=== PATIENT | female | born 1970 | race Caucasian/White ===

== ENCOUNTER 2016-11-08 19:26 | Inpatient (IN) ==
[2016-11-08 20:00] LABS: Basophils % 0.3 %; Eosinophils # 0.2 K/mcL (0.0-0.6); Eosinophils % 1.8 %; Hematocrit 28.2 % (35.3-44.9); Hemoglobin 8.9 g/dL (11.5-15.4); Immature Granulocytes % 0.4 % (0-4); Lymphocytes # 3.1 K/mcL (0.6-4.6); Mean Corpuscular HGB Conc 31.6 g/dL (31.6-35.5); Mean Corpuscular Volume 88.7 fL (83.0-100.0); Mean Platelet Volume 10.9 fL (9.4-12.4); Monocytes # 0.6 K/mcL (0.0-1.3); Monocytes % 6.1 %; Neutrophils # 5.2 K/mcL (1.6-8.9); Platelet Count 290 K/mcL (140-400); Red Blood Count 3.18 M/mcL (3.82-4.97); Red Cell Distribution Width 14.3 % (11.5-14.5); Segmented Neutrophils % 57.4 %
[2016-11-08 20:06] LABS: Prothrombin Time 10.5 Seconds (9.4-12.1)
[2016-11-08 20:08] LABS: Activated Partial Thrombo Time 29.8 Seconds (26.0-36.0)
[2016-11-08 20:12] LABS: Calcium 8.8 mg/dL (8.6-10.8); Potassium 4.4 mEq/L (3.5-4.5)
--- NOTE | 2016-11-08 21:16 | Emergency Department Note ---
Disposition Clinical Impression: Chronic anemia, ANDREW (acute kidney injury) Chest pain Qualifiers: Chest pain type: unspecified Qualified Code(s): R07.9 - Chest pain, unspecified Dyspnea Qualifiers: Dyspnea type: dyspnea on exertion Qualified Code(s): R06.09 - Other forms of dyspnea Disposition: Admitted As Inpatient Condition: Good Time of Disposition: 22:02 Chest Pain HPI - General Chief Complaint: ED Chest Pain Stated Complaint: Chest tightness x 2days CHRONIC Time Seen by Provider: 11/08/16 20:59 Source: patient Mode of arrival: ambulatory Limitations: no limitations Vital Signs Reviewed: Yes Nursing Notes Reviewed: Yes - History of Present Illness HPI Narrative: Patient is a 46-year-old female with past medical history of CK D, CAD, previous AR. She presents today due to 2 complaints. First complaint is she has had increased shortness of breath above baseline and centered chest pain. Chest pain started today around 3 PM. It has been intermittent, worsened with exertion, no radiation to the arms but she does admit to radiation to the back. It comes and goes, is dull ache. Some associated sweating, nausea. Denies any fevers or vomiting. Second complaint is bilateral flank pain. This has been going on for about 1-2 days. She has had decreased urine output. Also has had mild dysuria. She follows with nephrology for CKD. Severity scale (1-10): 7 - Related Data Home Medications Medication Instructions Recorded Confirmed Alprazolam [Alprazolam Xr] 1 mg PO HS 07/25/16 11/08/16 Amlodipine Besylate 10 mg PO DAILY 07/25/16 07/25/16 Chlorthalidone 50 mg PO DAILY 07/25/16 11/08/16 Citalopram Hydrobromide 40 mg PO DAILY 07/25/16 11/08/16 [Citalopram HBr] Clopidogrel [Plavix] 75 mg PO DAILY 07/25/16 11/08/16 Cyclobenzaprine [Flexeril] 10 mg PO HS 07/25/16 07/25/16 Fenofibrate 54 mg PO DAILY 07/25/16 07/25/16 Insulin Glargine,Hum.rec.anlog 300 unit SQ HS 07/25/16 07/25/16 [Toujacey Solostar] Insulin LISPRO [Humalog] 100 unit SQ TID 07/25/16 07/25/16 Isosorbide DInitrate [Isosorbide 30 mg PO DAILY 07/25/16 07/25/16 Dinitrate] Labetalol HCl 600 mg PO TID 07/25/16 07/25/16 Losartan [Cozaar] 100 mg PO DAILY 07/25/16 07/25/16 Metformin HCl [Fortamet] 1,000 mg PO BID 07/25/16 11/08/16 Metoclopramide [Reglan] 10 mg PO TID 07/25/16 07/25/16 Nitroglycerin [Nitrostat] 0.4 mg SL PRN PRN 07/25/16 07/25/16 Pregabalin [Lyrica] 100 mg PO TID 07/25/16 11/08/16 Simvastatin [Zocor] 40 mg PO HS 07/25/16 11/08/16 Topiramate [Topamax] 25 mg PO HS 07/25/16 11/08/16 hydrALAZINE [HydrALAZINE] 25 mg PO DAILY PRN 07/25/16 11/08/16 Ibuprofen [Motrin] 800 mg PO Q8HR PRN 11/08/16 11/08/16 Previous Rx's Medication Instructions Recorded Acetaminophen w/Cod 300-30 mg 1 each PO Q6HR #10 tablet 07/25/16 [Tylenol w/Codeine #3] predniSONE [PredniSONE] 10 mg PO DAILY #21 tablet 07/25/16 Allergies Allergy/AdvReac Type Severity Reaction Status Date / Time diphenhydramine Allergy Hives Verified 11/08/16 19:43 [From Benadryl] All systems ED: reviewed and negative except as stated. Constitutional: Denies: fever Cardiovascular: Reports: chest pain Respiratory: Denies: cough, dyspnea Gastrointestinal: Denies: abdominal pain, nausea, vomiting, diarrhea Genitourinary: Reports: dysuria Neurological: Denies: headache, weakness, numbness, paresthesias Chest Pain PMH - Past Medical History Medical history: Reports: arthritis, coronary artery disease, CVA, diabetes, GERD, hypertension, myocardial infarction, TIA Surgical history: Reports: orthopedic, other Psychiatric history: Reports: anxiety, bipolar, depression [employer] history: Reports: polycystic ovary syndrome - Social History Smoking Status: Never smoker Alcohol use: Reports: none Drug use: Reports: none Physical Exam - General Limitations: no limitations General appearance: alert, in no apparent distress - Head Head exam: atraumatic, normocephalic, normal inspection - Eye Eye exam: Present: normal appearance, PERRL, EOMI - ENT ENT exam: normal exam, normal oropharynx, mucous membranes moist - Neck Neck exam: Present: normal inspection, full ROM, trachea midline - Chest Chest inspection: Present: normal inspection, symmetric chest wall rise - Respiratory Respiratory exam: Present: normal lung sounds bilaterally - Cardiovascular Cardiovascular exam: Present: regular rate, normal rhythm, normal heart sounds - Abdominal Exam Abdominal exam: Present: soft, tenderness (Tenderness in bilateral flanks, mild- to-moderate; positive CVA tenderness bilaterally). Absent: distention, guarding , rebound, rigidity - Extremities Exam Extremities exam: Present: normal inspection, full ROM, pedal edema (Mild to moderate pitting edema bilateral lower extremities). Absent: tenderness - Neurological Exam Neurological exam: Present: alert, oriented X3 - Psychiatric Psychiatric exam: Present: normal affect, normal mood - Skin Skin exam: Present: warm, dry, intact, normal color Course Course Narrative: Patient was hypertensive on presentation in the 180s systolic. However, on my exam the patient systolic blood pressure was 140s. The rest of the vitals were within normal limits. Physical exam showed clear lungs, heart regular rate and rhythm, positive CVA tenderness bilaterally, positive flank tenderness on abdominal exam. EKG showed normal sinus rhythm with no acute ST changes. Labs show chronic anemia, ANDREW, elevated BNP. Troponin 0.03. Chest x-ray negative for acute cardiopulmonary process. No current chest pain. Patient did not take any aspirin. We will give the patient aspirin 325. No need currently for nitroglycerin. However, patient has significant cardiac history including a previous AR. She has not had a recent echocardiogram for a recent stress test within the past year. I discussed admission for chest pain rule out and she is agreeable with this plan. Urinalysis was also ordered to assess for any pyelonephritis/UTI that could be causing patient's bilateral flank pain. She is unable to give a urinalysis at this time, this will need to be followed up by hospitalist team. Chest X-Ray 11/08/16 19:44 IMPRESSION: No acute process. D/ / Prince Sanford MD / Prince Sanford MD Interpreting Provider: Prince Sanford MD Vital Signs Temperature 98.1 F 11/08/16 19:38 Pulse Rate 82 11/08/16 19:38 Respiratory Rate 20 11/08/16 19:38 Blood Pressure 184/72 11/08/16 19:38 O2 Sat by Pulse Oximetry 95 11/08/16 19:38 Temperature 98.0 F 11/08/16 23:41 Pulse Rate 69 11/08/16 23:41 Respiratory Rate 16 11/08/16 23:41 Blood Pressure 148/78 11/08/16 23:41 O2 Sat by Pulse Oximetry 96 11/08/16 23:41 Oxygen Delivery Oxygen Delivery Room Air Chest Pain - MDM Narrative Medical decision making narrative: No current chest pain. Patient did not take any aspirin. We will give the patient aspirin 325. No need currently for nitroglycerin. However, patient has significant cardiac history including a previous AR. She has not had a recent echocardiogram for a recent stress test within the past year. I discussed admission for chest pain rule out and she is agreeable with this plan. Urinalysis was also ordered to assess for any pyelonephritis/UTI that could be causing patient's bilateral flank pain. She is unable to give a urinalysis at this time, this will need to be followed up by hospitalist team. - Medical Records Medical records reviewed: Yes I reviewed the patient's medical records. - Lab Data Lab results reviewed: Yes I reviewed the patient's lab results. Result diagrams: 11/08/16 19:50 11/08/16 19:50 Lab Results 11/08/16 11/08/16 11/08/16 Range/Units 19:50 19:50 19:50 WBC 9.1 (4.3-11.1) K/mcL RBC 3.18 L (3.82-4.97) M/mcL Hgb 8.9 L (11.5-15.4) g/dL Hct 28.2 L (35.3-44.9) % MCV 88.7 (83.0-100.0) fL MCH 28.0 (28.0-33.3) pg MCHC 31.6 (31.6-35.5) g/dL RDW 14.3 (11.5-14.5) % Plt Count 290 (140-400) K/mcL MPV 10.9 (9.4-12.4) fL Immature Gran % 0.4 (0-4) % Seg Neutrophils % 57.4 % Lymphocytes % 34.0 % Monocytes % 6.1 % Eosinophils % 1.8 % Basophils % 0.3 % Neutrophils # 5.2 (1.6-8.9) K/mcL Lymphocytes # 3.1 (0.6-4.6) K/mcL Monocytes # 0.6 (0.0-1.3) K/mcL Eosinophils # 0.2 (0.0-0.6) K/mcL Basophils # 0.0 (0.0-0.2) K/mcL PT 10.5 (9.4-12.1) Seconds INR 1.0 APTT 29.8 (26.0-36.0) Seconds Sodium 139 (136-145) mEq/L Potassium 4.4 (3.5-4.5) mEq/L Chloride 107 (98-109) mEq/L Carbon Dioxide 19 (19-29) mEq/L BUN 38 H (7-20) mg/dL Creatinine 1.68 H (0.57-1.11) mg/dL Est GFR ( Amer) 40 L (> 60) Est GFR (Non-Af Amer) 33 L (> 60) BUN/Creatinine Ratio 23 (6-26) Glucose 358 H (70-99) mg/dL Calculated Osmolality 311 H (280-300) Calcium 8.8 (8.6-10.8) mg/dL Troponin I (0-0.03) ng/mL B-Natriuretic Peptide (0-100) pg/mL 11/08/16 11/08/16 Range/Units 19:50 19:50 WBC (4.3-11.1) K/mcL RBC (3.82-4.97) M/mcL Hgb (11.5-15.4) g/dL Hct (35.3-44.9) % MCV (83.0-100.0) fL MCH (28.0-33.3) pg MCHC (31.6-35.5) g/dL RDW (11.5-14.5) % Plt Count (140-400) K/mcL MPV (9.4-12.4) fL Immature Gran % (0-4) % Seg Neutrophils % % Lymphocytes % % Monocytes % % Eosinophils % % Basophils % % Neutrophils # (1.6-8.9) K/mcL Lymphocytes # (0.6-4.6) K/mcL Monocytes # (0.0-1.3) K/mcL Eosinophils # (0.0-0.6) K/mcL Basophils # (0.0-0.2) K/mcL PT (9.4-12.1) Seconds INR APTT (26.0-36.0) Seconds Sodium (136-145) mEq/L Potassium (3.5-4.5) mEq/L Chloride (98-109) mEq/L Carbon Dioxide (19-29) mEq/L BUN (7-20) mg/dL Creatinine (0.57-1.11) mg/dL Est GFR ( Amer) (> 60) Est GFR (Non-Af Amer) (> 60) BUN/Creatinine Ratio (6-26) Glucose (70-99) mg/dL Calculated Osmolality (280-300) Calcium (8.6-10.8) mg/dL Troponin I 0.03 (0-0.03) ng/mL B-Natriuretic Peptide 137 H (0-100) pg/mL - Radiology Data Radiology results reviewed: Yes I reviewed the patient's radiology results. Chest X-Ray 11/08/16 19:44 IMPRESSION: No acute process. D/ / Prince Sanford MD / Prince Sanford MD Interpreting Provider: Prince Sanford MD - EKG Data EKG attestation: Yes I reviewed and interpreted this EKG. EKG results narrative: EKG shows normal sinus rhythm. Rate 93. UT 160. QRS 100. QTC 394. Left axis deviation. No acute ST elevation or depression. Heart Score - Score History: Moderately Suspicious EKG: Normal Age: Less than 45 Risk Factors: Equal/Greater than 3 risk factor or history of atherosclerotic disease Troponin: Less than normal limit HEART Score Total: 3 S.B.A.R. - S.B.A.R. Situation: Demographics, MOA Background: Presenting Complaint, Relevant PMH, Meds, & Allergies Assessment: Vital Signs, Course and respsone to treatment, Exam Concerns, Patient/Family Expectation, Pertinant Lab Results, Outstanding Labs Recommendation: Barrier(s) to disposition, Recommendation based on pending studies, treatments, or consults S.B.A.RDave Report Given to: Dr. Barry Waterman Repor Time: 22:02 Attestation Statement - Attestation Attestation: I, Farhat Courtney DO, examined this patient [id number] and my medical decision-making was reviewed with Dr. Marcell Mendiola, Resident Physician. I agree with the documented findings, disposition and treatment plan as described except to the extent set forth below. Please see my progress notes for details. 46-year-old female presents emergency room with shortness of breath increased weight gain and fluid swelling of the lower extremities and chest discomfort. She has chronic chest discomfort issues appears to be similar this time but she was having more exertional dyspnea than previously. Physical exam does show clear lungs with the training that salt does have mild pitting edema in the bilateral lower extremities but otherwise has no other acute issues noted at this time. EKG labs including troponin were all negative at this time. BNP is slightly elevated. Rest of her laboratory workup appears to be at her baseline at this point. Chest x-ray is otherwise stable. Detailed review the presentation symptoms and history were discussed with the patient and family. Recommendation for admission was determined after patient describes more as he exertional dyspnea and orthopnea. Hospitalist was contacted in addition process completed. See detailed documentation of the conversations evaluation medical intervention completed here in the emergency room by the resident physician. No other concerns or issues noted. Treatment completed here in the ED.
[2016-11-08] MEDS ORDERED: Aspirin 325 MG TABLET PO ONE (21:56)
[2016-11-08] MEDS ORDERED: Ondansetron 4 MG/2 ML VIAL IVP ONE (22:20)
[2016-11-09] MEDS ORDERED: Naloxone 0.4 MG/ML INJ IVP PRN (00:25)
[2016-11-09] MEDS ORDERED: Ondansetron 4 MG/2 ML VIAL IVP PRN (00:25)
[2016-11-09] MEDS ORDERED: hydrALAZINE 25 MG TABLET PO PRN (00:34)
[2016-11-09] MEDS ORDERED: Nitroglycerin 0.4 MG TAB.SUBL SL PRN (00:34)
[2016-11-09] MEDS ORDERED: Dextrose Gel 15 GM PO PRN ×2 (00:56)
[2016-11-09] MEDS ORDERED: *HR* Dextrose 50 % in Water (Syg) 50 ML SYRINGE IVP PRN (00:56)
[2016-11-09] MEDS ORDERED: D5% in Water 1,000 ML IVC PRN (00:56)
[2016-11-09] MEDS: Acetaminophen 325 MG TABLET PO PRN ×2 (01:08→10:00)
[2016-11-09 01:30] LABS: Calcium 8.6 mg/dL (8.6-10.8); Potassium 4.5 mEq/L (3.5-4.5)
[2016-11-09] MEDS: Insulin DETEMIR 100 UNIT/ML X5UNITS SQ SCH ×2 (01:48→21:20)
[2016-11-09 02:03] LABS: Basophils % 0.5 %; Eosinophils # 0.2 K/mcL (0.0-0.6); Eosinophils % 2.1 %; Hematocrit 25.8 % (35.3-44.9); Immature Granulocytes % 0.5 % (0-4); Lymphocytes # 3.2 K/mcL (0.6-4.6); Lymphocytes % 35.7 %; Mean Corpuscular Hemoglobin 27.4 pg (28.0-33.3); Mean Corpuscular Volume 88.4 fL (83.0-100.0); Mean Platelet Volume 10.7 fL (9.4-12.4); Monocytes # 0.6 K/mcL (0.0-1.3); Monocytes % 6.9 %; Neutrophils # 4.8 K/mcL (1.6-8.9); Platelet Count 260 K/mcL (140-400); Red Blood Count 2.92 M/mcL (3.82-4.97); Red Cell Distribution Width 14.5 % (11.5-14.5); Segmented Neutrophils % 54.3 %
[2016-11-09 03:54] LABS: Bilirubin,Urine Negative (Negative); Blood,Urine Negative (Negative); Clarity,Urine Clear (Clear); Color,Urine Yellow (Yellow); Glucose,Urine (UA) 250 mg/dL (Normal); Ketones,Urine Negative (Negative); Leukocyte Esterase,Urine Negative (Negative); Nitrite,Urine Negative (Negative); Protein,Urine Negative (Neg-Trace); Specific Gravity,Urine 1.016 (1.010-1.025); Urobilinogen,Urine Normal (Normal)
[2016-11-09] MEDS ORDERED: Magnesium Sulfate 2 GM in D5% in Water 100 ML IVPB ONE ×2 (03:54→15:02)
--- NOTE | 2016-11-09 04:42 | Internal Med History&Physical ---
Date of Encounter: 11/09/16 Time of Encounter: 00:00 Assessment and Plan (1) Chest tightness Current visit: Yes Status: Acute Patient to report chest Tightness, with nausea, shortness of breath, palpitation , and diaphoresis. Need to rule out ACS/CAD. - Place patient on continuous cardiac monitoring. - Cycle 3 sets of troponin. - Echocardiogram. - Stress test in a.m. (2) Leg swelling Current visit: Yes Status: Acute Etiology is undetermined. Patient has a worsening renal function. Probably account for leg swelling. We will also follow echo to rule out CHF. Not place patient on Lasix because her worsening renal function. Will consult nephrology. (3) DVT prophylaxis Current visit: Yes Status: Acute Heparin subcutaneously (4) Chronic anemia Current visit: Yes Status: Acute Etiology is undetermined. Probably due to renal dysfunction. Closely follow up H&H. (5) ANDREW (acute kidney injury) Current visit: Yes Status: Acute He report decreased urine output with elevated creatinine. Will consult nephrology. Order ultrasound renal to rule out obstruction. (6) Diabetes Current visit: Yes Status: Acute We will continue basal and a sliding-scale insulin coverage. Qualifiers: Diabetes mellitus type: type 2 Diabetes mellitus complication status: with kidney complications Diabetes mellitus complication detail: with chronic kidney disease Diabetes mellitus intermediate insulin use: with intermediate use Chronic kidney disease stage: stage 3 (moderate) Qualified Code(s): E11.22 - Type 2 diabetes mellitus with diabetic chronic kidney disease; N18.3 - Chronic kidney disease, stage 3 (moderate); Z79.4 - senior living (current) use of insulin Internal Medicine - H&P: HPI Chief complaint: Chest tightness Admitted From: Home Plans for Post Hospital Care: Home History of present illness: Ms. South is a 46 year old female present to ER for chest tightness since today. Patient said that the discomfort located on left chest, no radiation, patient has shortness of breath, nausea, and diaphoresis. Patient also reported palpitation. The chest tightness is intermittent, lasts about 30-45 with second. Patient has 5 episodes of this kind of tightness today. Patient said that she tried nitroglycerin, it helps. Patient also reports leg swelling and worsening renal function for 6 months. Patient said she has decreased urine output recently. Past Med Surg Social Fam HX - Past Medical History Medical history: arthritis, coronary artery disease, CVA, diabetes, GERD, hypertension, myocardial infarction, TIA Psychiatric history: anxiety, depression - Past Surgical History Surgical History: cholecystectomy, orthopedic, other - Social History Smoking Status: Never smoker Smokeless Tobacco Status: No Alcohol use: none Drug use: none - Family History Mother Hx Family Cardiac Disorders: Yes (HYPERTENSION.) Internal Medicine - H&P: Meds Alprazolam [Alprazolam Xr] 1 mg PO HS 07/25/16 [History] Amlodipine Besylate 10 mg PO DAILY 07/25/16 [History] Chlorthalidone 50 mg PO DAILY 07/25/16 [History] Citalopram Hydrobromide [Citalopram HBr] 40 mg PO DAILY 07/25/16 [History] Clopidogrel [Plavix] 75 mg PO DAILY 07/25/16 [History] Cyclobenzaprine [Flexeril] 10 mg PO HS PRN 07/25/16 [History] Fenofibrate 162 mg PO DAILY 07/25/16 [History] Insulin Glargine,Hum.rec.anlog [Toujeo Solostar] 56 - 60 unit SQ HS 07/25/16 [ History] Insulin LISPRO [Humalog] 0 unit SQ TID 07/25/16 [History] Isosorbide DInitrate [Isosorbide Dinitrate] 30 mg PO BID 07/25/16 [History] Labetalol HCl 600 mg PO TID 07/25/16 [History] Losartan [Cozaar] 100 mg PO DAILY 07/25/16 [History] Metformin HCl [Fortamet] 1,000 mg PO BID 07/25/16 [History] Metoclopramide [Reglan] 10 mg PO ACHS 07/25/16 [History] Nitroglycerin [Nitrostat] 0.4 mg SL PRN PRN 07/25/16 [History] Pregabalin [Lyrica] 100 mg PO TID 07/25/16 [History] Simvastatin [Zocor] 40 mg PO HS 07/25/16 [History] Topiramate [Topamax] 25 mg PO HS 07/25/16 [History] hydrALAZINE [HydrALAZINE] 25 mg PO DAILY PRN 07/25/16 [History] Cyanocobalamin/FA/Pyridoxine [Folbic Tablet] 1 each PO DAILY 11/08/16 [History] Ergocalciferol (VITAMIN D2) [Vitamin D2] 50,000 unit PO QWEEK 11/08/16 [History] Ibuprofen [Motrin] 800 mg PO Q8HR PRN 11/08/16 [History] 3 Allergy/AdvReac Type Severity Reaction Status Date / Time diphenhydramine Allergy Hives Verified 11/08/16 19:43 [From Benadryl] All Systems PM: A 10-system review of systems was performed and is negative for pertinent findings except as documented above in the HPI. - Constitutional Vitals: Temp Pulse Resp BP Pulse Ox 97.7 F 67 17 172/78 98 11/09/16 03:49 11/09/16 03:49 11/09/16 03:49 11/09/16 03:49 11/09/16 03:49 General appearance: Present: A&O X 3, no acute distress, answers questions appropriately - Head Head exam: Present: atraumatic, normocephalic - Eye Eye exam: Present: PERRL, conjuntiva pink, sclera anicteric Pupils: Present: PERRL - Neck Neck exam general surgery: Present: supple, trachea midline. Absent: lymphadenopathy - Respiratory Respiratory exam: Present: CTAB. Absent: accessory muscle use, rales, rhonchi, wheezes - Cardiovascular Cardiovascular exam: Present: RRR, +S1, +S2. Absent: diastolic murmur, gallop, rubs, systolic murmur - GI/Abdominal GI/Abdominal exam: Present: normal bowel sounds, soft, no peritoneal signs. Absent: distended, tenderness - Extremities Exam Extremities exam: Present: pedal edema (Bilaterally pedal edema), warm, radial pulses palpable and symmetrical. Absent: calf tenderness, cyanotic - Neurological Exam Neurological exam: Present: CN II-XII intact, oriented X3, no focal deficits. Absent: pronater drift, facial droop, speech deficit - Skin Skin exam: Present: dry, intact Internal Med - H&P Results - Labs CBC & Chem 7: 11/09/16 01:53 11/09/16 01:07 Labs: Short CBC 11/09/16 Range/Units 01:53 WBC 8.8 (4.3-11.1) K/mcL Hgb 8.0 L (11.5-15.4) g/dL Hct 25.8 L (35.3-44.9) % Plt Count 260 (140-400) K/mcL Neutrophils # 4.8 (1.6-8.9) K/mcL BMP 11/09/16 01:07 Sodium 137 Potassium 4.5 Chloride 109 Carbon Dioxide 15 L BUN 36 H Creatinine 1.49 H Glucose 320 H Calcium 8.6 Cardiac Enzymes 11/09/16 Range/Units 01:07 Troponin I 0.03 (0-0.03) ng/mL Urine 11/09/16 Range/Units 03:46 Urine Color Yellow (Yellow) Urine Clarity Clear (Clear) Urine pH 6.0 (5.0-8.0) pH Units Ur Specific [place] 1.016 (1.010-1.025) Urine Protein Negative (Neg-Trace) mg/dL Urine Glucose (UA) 250 H (Normal) mg/dL - EKG Data -: EKG Interpreted by Myself EKG shows normal: sinus rhythm Rate: normal
[2016-11-09] MEDS: *HR* Heparin 5,000 UNIT/ML VIAL SQ SCH ×2 (06:44→17:11)
--- NOTE | 2016-11-09 08:28 | Event Note ---
Date of Encounter: 11/09/16 Time of Encounter: 08:26 Patient was seen for renal consult for increasing serum creatinine. Patient was not in the room at the time. I did review the medical record. She presented with a creatinine of 1.68. Today it is down to 1.49. Previous creatinines were 1.05 in September 2014 and 1.27 in July 2016. Medical record indicates she had been taking ibuprofen. There is also some mention of lower extremity swelling. Medical record indicates she had been taking amlodipine and Lyrica both which could contribute to lower extremity swelling. Patient will be seen and examined in full consult will follow when patient is available for evaluation.
[2016-11-09] MEDS: amLODIPine 5 MG TABLET PO SCH (10:01)
[2016-11-09] MEDS: Pregabalin 50 MG CAPSULE PO SCH ×3 (10:01→21:16)
[2016-11-09] MEDS: Fenofibrate 54 MG TABLET PO SCH (10:02)
[2016-11-09] MEDS: FOLBIC PO SCH (10:03)
[2016-11-09] MEDS: Insulin LISPRO 300 UNITS/3 ML VIAL SQ SCH ×4 (10:03→21:20)
--- NOTE | 2016-11-09 16:27 | Internal Med Progress Note ---
Date of Encounter: 11/09/16 Time of Encounter: 15:05 - Assessment and plan (1) Chest pain Current Visit: Yes Status: Acute Assessment and plan: Patient reports chest pain that began yesterday at approximately 3:00 lasting 45 seconds. She reports it as a tightness with intermittent shortness of breath. Now she states it feels like a pulled muscle. It is not reproducible to palpation, deep inspiration, or movement. Patient has a history of OR in 2013 no stents were placed at that time. Last stress test was 1 year ago at [facility] where her certified ophthalmic surgical assistant is. Last visit cardiology was 7 months ago. Echocardiogram today showed LVEF of 60%, mild LV DD and no significant valvular dysfunction. Stress test is still pending. Troponins were negative 3. Chest x-ray was negative for any acute process. Patient is already on Plavix, TriCor , losartan, Isordil, a beta yefri, losartan, as well as simvastatin. Continue these medications. Stress test in the morning Continue computer systems technology instructor labs and vitals Nitroglycerin for chest pain Qualifiers: Chest pain type: unspecified Qualified Code(s): R07.9 - Chest pain, unspecified (2) Leg swelling Current Visit: Yes Status: Acute Assessment and plan: Patient reports lower extremity edema for 4-5 days. This is accompanied by shortness of breath and chest pain. Patient with +1 nonpitting edema to bilateral ankles. Patient states it has improved. Continue chlorthalidone Continue computer systems technology instructor labs (3) Dyspnea Current Visit: Yes Status: Acute Assessment and plan: Patient reports shortness of breath associated with chest pain that lasts 45 seconds. Patient is not requiring supplemental oxygen. Her lungs are clear. She has minimal peripheral edema. Her mother states that her abdomen is distended and swollen more than it normally is. Oxygen as needed, titrate to maintain sats greater than 92% Continue telemetry Stress test pending Qualifiers: Dyspnea type: unspecified Qualified Code(s): R06.00 - Dyspnea, unspecified (4) Chronic anemia Current Visit: Yes Status: Acute Assessment and plan: Patient with history of chronic anemia, most likely due to chronic renal disease. Continue to monitor H&H. Hemoglobin is 8.0 currently. Prepared to transfuse if less than 8. (5) Diabetes Current Visit: Yes Status: Acute Assessment and plan: A1c as ordered for the morning. Continue fighting scale insulin, Accu-Cheks before meals at bedtime, diabetic diet. Qualifiers: Diabetes mellitus type: type 2 Diabetes mellitus complication status: with kidney complications Diabetes mellitus complication detail: with chronic kidney disease Diabetes mellitus terminal clerk insulin use: with penitentiary use Chronic kidney disease stage: stage 3 (moderate) Qualified Code(s): E11.22 - Type 2 diabetes mellitus with diabetic chronic kidney disease; N18.3 - Chronic kidney disease, stage 3 (moderate); Z79.4 - vermin exterminator (current) use of insulin (6) Obesity (BMI 30-39.9) Current Visit: Yes Status: Acute Assessment and plan: Chronic. Continue to encourage lifestyle modifications. (7) DVT prophylaxis Current Visit: Yes Status: Acute Assessment and plan: Heparin subcutaneous daily. (8) CKD (chronic kidney disease) stage 3, GFR 30-59 ml/min Current Visit: Yes Status: Acute Assessment and plan: Patient was stage III renal disease, sees Dr. Bishop at [facility]. Nephrology here has been consulted, he missed her today, he will return to follow-up with consultation. Retroperitoneal ultrasound has been ordered however it is not completed yet. Avoid nephrotoxins and continue to monitor labs. - Time Spent With Patient less than 15 minutes - Subjective Interval history: Patient was seen and assessed at bedside at 1505. She reports bilateral low lateral abdominal pain/side pain for 2 weeks with decreased urine output. She also reports lower extremity edema onset for 5 days ago. She began having chest pain at 3:00 yesterday with intermittent shortness of breath. She says that it lasted approximately 45 seconds and today feels like a pulled muscle in her chest. She has a prior history of OR in 2013 and her last stress was negative in approximately one year ago at [facility]. She did not have a stent placed. Her last visit with cardiology was 7 months ago. The symptoms have resolved. 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 Patient's stress test, retroperitoneal ultrasound, and nephrology consultation are all still pending. Nephrology was here to see patient, however she was not available. He will return to evaluate. - Constitutional Vitals: Temp Pulse Resp BP Pulse Ox 97.7 F 77 16 96/57 93 11/09/16 15:25 11/09/16 15:25 11/09/16 15:25 11/09/16 15:25 11/09/16 15:25 General appearance: Present: A&O X 3, morbidly obese, no acute distress, answers questions appropriately - Head Head exam: Present: atraumatic, normal inspection, normocephalic - Eye Eye exam: Present: normal appearance, conjuntiva pink, sclera anicteric - ENT ENT exam: Present: mucous membranes moist, normal exam, normal external ear exam - Neck Neck exam general surgery: Present: tenderness, supple, trachea midline. Absent : lymphadenopathy - Respiratory Respiratory exam: Present: decreased breath sounds, CTAB. Absent: accessory muscle use, rales, rhonchi, wheezes - Cardiovascular Cardiovascular exam: Present: RRR, +S1, +S2. Absent: diastolic murmur, gallop, rubs, systolic murmur - GI/Abdominal GI/Abdominal exam: Present: normal bowel sounds, soft, no peritoneal signs. Absent: distended, hepatomegaly, tenderness - Extremities Exam Extremities exam: Present: normal capillary refill, pedal edema, warm, radial pulses palpable and symmetrical. Absent: calf tenderness, cyanotic Additional comments: +1 nonpitting edema in bilateral lower extremities ankles. - Neurological Exam Neurological exam: Present: alert, oriented X3. Absent: facial droop, speech deficit - Skin Skin exam: Present: dry, intact, normal color, warm. Absent: rash Internal Medicine: Result - Labs CBC & Chem 7: 11/09/16 01:53 11/09/16 01:07 Labs: Short CBC 11/09/16 Range/Units 01:53 WBC 8.8 (4.3-11.1) K/mcL Hgb 8.0 L (11.5-15.4) g/dL Hct 25.8 L (35.3-44.9) % Plt Count 260 (140-400) K/mcL Neutrophils # 4.8 (1.6-8.9) K/mcL BMP 11/09/16 01:07 Sodium 137 Potassium 4.5 Chloride 109 Carbon Dioxide 15 L BUN 36 H Creatinine 1.49 H Glucose 320 H Calcium 8.6 Cardiac Enzymes 11/09/16 11/09/16 Range/Units 01:07 10:36 Troponin I 0.03 0.02 (0-0.03) ng/mL Urine 11/09/16 Range/Units 03:46 Urine Color Yellow (Yellow) Urine Clarity Clear (Clear) Urine pH 6.0 (5.0-8.0) pH Units Ur Specific [place] 1.016 (1.010-1.025) Urine Protein Negative (Neg-Trace) mg/dL Urine Glucose (UA) 250 H (Normal) mg/dL - ABG Interpretation ABG results: PT/INR, D-dimer PT 10.5 Seconds (9.4-12.1) 11/08/16 19:50 Consult Discharge Plan - Plan Referrals: Venessa Hobbs MD [Primary Care Provider] -
[2016-11-09] MEDS: Topiramate 25 MG TABLET PO SCH (21:17)
[2016-11-09] MEDS: ALPRAZolam 1 MG TABLET PO SCH (21:18)
[2016-11-10 04:37] LABS: Basophils % 0.3 %; Eosinophils # 0.1 K/mcL (0.0-0.6); Eosinophils % 1.3 %; Hemoglobin 7.6 g/dL (11.5-15.4); Immature Granulocytes % 0.3 % (0-4); Lymphocytes # 2.2 K/mcL (0.6-4.6); Lymphocytes % 29.3 %; Mean Corpuscular HGB Conc 31.7 g/dL (31.6-35.5); Mean Corpuscular Hemoglobin 27.9 pg (28.0-33.3); Mean Corpuscular Volume 88.2 fL (83.0-100.0); Mean Platelet Volume 11.3 fL (9.4-12.4); Monocytes # 0.6 K/mcL (0.0-1.3); Monocytes % 7.7 %; Neutrophils # 4.6 K/mcL (1.6-8.9); Platelet Count 244 K/mcL (140-400); Red Blood Count 2.72 M/mcL (3.82-4.97); Red Cell Distribution Width 14.6 % (11.5-14.5); Segmented Neutrophils % 61.1 %
[2016-11-10 04:45] LABS: Hemoglobin A1C 9.5 %
[2016-11-10 05:01] LABS: Calcium 8.3 mg/dL (8.6-10.8); Potassium 3.8 mEq/L (3.5-4.5)
[2016-11-10] MEDS: *HR* Heparin 5,000 UNIT/ML VIAL SQ SCH ×2 (05:34→17:20)
[2016-11-10] MEDS ORDERED: Regadenoson 0.4 MG/5 ML SYRINGE IVP ONE (06:22)
--- NOTE | 2016-11-10 08:32 | Event Note ---
Date of Encounter: 11/10/16 Time of Encounter: 08:31 I have been to the patient's room on 3 separate occasions and each time she has been off the floor. Therefore the full consult is still pending. We will attempt see her later today.
[2016-11-10] MEDS: Insulin LISPRO 300 UNITS/3 ML VIAL SQ SCH ×4 (09:41→20:47)
[2016-11-10] MEDS: Fenofibrate 54 MG TABLET PO SCH (09:41)
[2016-11-10] MEDS: Pregabalin 50 MG CAPSULE PO SCH ×3 (09:42→20:46)
[2016-11-10] MEDS: FOLBIC PO SCH (09:43)
[2016-11-10] MEDS: amLODIPine 5 MG TABLET PO SCH (09:43)
--- NOTE | 2016-11-10 10:15 | Nephrology Consult Note ---
Date of Encounter: 11/10/16 Time of Encounter: 09:40 Assessment and Plan (1) ANDREW (acute kidney injury) Current Visit: Yes Status: Acute ANDREW superimposed on CKD 3 in setting of DM. Baseline creat 1.2, GFR 48. Recent NSAID use, decreased oral intake and hypotension for past 24 hours contributing. Will stop Chlorthalidone and PRN Hydralazine and decrease Labatolol 600mg BID. Will obtain Renal US given prior renal stone history. Lyrica and Amlodipine contributing to LE swelling. Accurate I&O's. Avoid nephrotoxins. Will continue to monitor. History of Present Illness - Reason for Consult Acute Kidney Injury - History of Present Illness Ms. South is a 46 year old female with history of CKD stage 3, baseline creat 1.2, GFR 48, in setting of diabetes, CAD,HTN, [place]. Follows with Nephrology out of [facility]. Who presented on Nov 08 with midsternal nonradiating chest pain, shortness of breath, bilateral flank pain. She also states she had increased lower extremity swelling for past week which is now much improved. She admitted nausea, denied vomiting, admitted decreased oral intake. Admits recent wisdom tooth extraction with use of Ibuprofen for pain Initial creat 1.68 , GFR 33 today creat 1.88, GFR 29. Diabetes and hypertension since 1999, never under good control. Admits recent diagnosis of diabetic retinopathy, not requiring intervention to date. Admits proteinuria, microscopic hematuria. Admits 6-7 renal stone events not requiring intervention. Last event 13 years ago. Does not know stone composition. Admits frequent UTI's since becoming diabetic. She denies difficulty urinating, voiding 3-4 times daily during hospital stay, though documented urine output 100cc. At consult today, denies chest or flank discomfort. Denies nausea. States LE swelling uch improved, noted trace pitting. Past Med Surg Social Fam HX - Past Medical History Medical history: arthritis, coronary artery disease, CVA, diabetes, GERD, hypertension, myocardial infarction, TIA Psychiatric history: anxiety, depression - Past Surgical History Surgical History: cholecystectomy, orthopedic, other - Social History Smoking Status: Never smoker Smokeless Tobacco Status: No Alcohol use: none Drug use: none - Family History Mother Hx Family Cardiac Disorders: Yes (HYPERTENSION.) Medications and Allergies Alprazolam [Alprazolam Xr] 1 mg PO HS 07/25/16 [History] Amlodipine Besylate 10 mg PO DAILY 07/25/16 [History] Chlorthalidone 50 mg PO DAILY 07/25/16 [History] Citalopram Hydrobromide [Citalopram HBr] 40 mg PO DAILY 07/25/16 [History] Clopidogrel [Plavix] 75 mg PO DAILY 07/25/16 [History] Cyclobenzaprine [Flexeril] 10 mg PO HS PRN 07/25/16 [History] Fenofibrate 162 mg PO DAILY 07/25/16 [History] Insulin Glargine,Hum.rec.anlog [Toujeo Solostar] 56 - 60 unit SQ HS 07/25/16 [ History] Insulin LISPRO [Humalog] 10 - 15 unit SQ TID 07/25/16 [History] Isosorbide DInitrate [Isosorbide Dinitrate] 30 mg PO BID 07/25/16 [History] Labetalol HCl 600 mg PO TID 07/25/16 [History] Losartan [Cozaar] 100 mg PO DAILY 07/25/16 [History] Metformin HCl [Fortamet] 1,000 mg PO BID 07/25/16 [History] Metoclopramide [Reglan] 10 mg PO ACHS 07/25/16 [History] Nitroglycerin [Nitrostat] 0.4 mg SL PRN PRN 07/25/16 [History] Pregabalin [Lyrica] 100 mg PO TID 07/25/16 [History] Simvastatin [Zocor] 40 mg PO HS 07/25/16 [History] Topiramate [Topamax] 25 mg PO HS 07/25/16 [History] hydrALAZINE [HydrALAZINE] 25 mg PO DAILY PRN 07/25/16 [History] Cyanocobalamin/FA/Pyridoxine [Folbic Tablet] 1 each PO DAILY 11/08/16 [History] Ergocalciferol (VITAMIN D2) [Vitamin D2] 50,000 unit PO QWEEK 11/08/16 [History] Ibuprofen [Motrin] 800 mg PO Q8HR PRN 11/08/16 [History] 3 Allergy/AdvReac Type Severity Reaction Status Date / Time diphenhydramine Allergy Hives Verified 11/08/16 19:43 [From Benadryl] Review of Systems All Systems: reviewed and no additional remarkable complaints except as stated Exam - Vital Signs Vital signs: Initial Vital Signs Temp Pulse Resp BP Pulse Ox 98.1 F 82 20 184/72 95 11/08/16 19:38 11/08/16 19:38 11/08/16 19:38 11/08/16 19:38 11/08/16 19:38 Vital Signs - Last 8 Hours Temp Pulse Resp BP Pulse Ox 11/10/16 07:22 98.0 F 72 16 98/59 94 11/10/16 03:46 97.8 F 70 17 94/51 93 Intake and Output 11/09/16 11/10/16 11/10/16 23:59 07:59 15:59 Intake Total 300 / 300 Balance 300 / 300 Intake: Oral 300 / 300 Other: Meal Dinner Percent of Meal Consumed 50% Weight 121.563 kg Blood Glucose* 218 181 Patient Weight 11/10/16 23:59 Weight 121.563 kg - General Appearance General appearance: well-developed, well-nourished, appears started age, obese EENT: mucous membranes moist Neck: no JVD, no carotid bruit Respiratory: clear Cardiology: regular rate, regular rhythm Additional Comments: trace pitting Gastrointestinal: normoactive bowel sounds, no tenderness, no guarding Integumentary: warm and dry Neurologic: alert and oriented x3 Psychiatric: mood/affect appropriate, cooperative Results - Lab Results 11/10/16 03:38 11/10/16 03:38 Most recent lab results Calcium 8.3 mg/dL (8.6-10.8) L 11/10/16 03:38 Magnesium 1.3 mg/dL (1.6-2.6) L 11/09/16 16:41 Consult Discharge Plan - Plan Referrals: Venessa Hobbs MD [Primary Care Provider] -
--- NOTE | 2016-11-10 13:40 | Internal Med Progress Note ---
Date of Encounter: 11/10/16 Time of Encounter: 12:15 - Assessment and plan (1) Dyspnea Current Visit: Yes Status: Resolved Assessment and plan: Patient currently denies shortness of breath above her norm. Tolerating room air. 2 day stress test pending with second part tomorrow. Thus far, chest x- ray negative. Echocardiogram revealing ejection fraction of 60% with mild diastolic dysfunction. No pedal edema on examination. No indication of heart failure at this time. Awaiting second part of her stress test. ITS Impressions Chest X-Ray 11/08/16 19:44 IMPRESSION: No acute process. D/ / Prince Sanford MD / Prince Sanford MD Interpreting Provider: Prince Sanford MD Echocardiogram Date of Study: 11/09/2016 Indications: Chest tightness Impressions: LVEF 60%. Normal LV chamber size, wall thickness and function. Mild left ventricular diastolic dysfunction. Normal right ventricular structure and function. No significant valvular dysfunction. Mild pulmonary hypertension. (2) Chest pain Current Visit: Yes Status: Acute Assessment and plan: Patient is currently chest pain-free. Troponins negative 3. Chest x-ray negative. See prior note for dyspnea. Qualifiers: Chest pain type: unspecified Qualified Code(s): R07.9 - Chest pain, unspecified (3) Chest tightness Current Visit: Yes Status: Resolved (4) Leg swelling Current Visit: Yes Status: Resolved Assessment and plan: Patient reports lower extremity edema for 4-5 days that has since resolved. (5) Chronic anemia Current Visit: Yes Status: Chronic Assessment and plan: Patient has been anemic since 2014 however since the beginning of this month, patient's hemoglobin has been lower than usual and is trending down. Current hemoglobin 7.6. Unclear causation. Patient denies hematochezia, melena, hemoptysis. We will obtain guaiac, iron, B12 and folate and monitor. Patient stating she has never had to have a blood transfusion in the past. No signs of active bleeding and likely due to her CKD, but will investigate. (6) ANDREW (acute kidney injury) Current Visit: Yes Status: Acute Assessment and plan: Patient with acute kidney injury superimposed on chronic kidney disease stage III. Nephrology is on board and is following. Retroperitoneal ultrasound unremarkable for acute processes. Urinalysis unremarkable. Patient is hypotensive at this time. Holding her losartan. Hold NSAIDs. Encourage by mouth intake. Nephrology has stopped her chlorthalidone as well as her as needed hydralazine. They have also decreased her labetalol dosage. Her lower extremity has swelling has resolved at this time-if reoccurs, we will consider adjusting Lyrica and amlodipine as these can contribute. ITS Impressions Retroperitoneum Ultrasound 11/10/16 11:00 IMPRESSION: No hydronephrosis noted Punctate echogenic foci in the right kidney, either tiny islands of fat or nonobstructing renal calculi. D/ / Prince Crum MD / Prince Crum MD Interpreting Provider: Prince Crum MD (7) CKD (chronic kidney disease) stage 3, GFR 30-59 ml/min Current Visit: Yes Status: Chronic Assessment and plan: Patient was stage III renal disease, sees Dr. Bishop at [facility]. See prior note for acute kidney injury (8) Diabetes Current Visit: Yes Status: Chronic Assessment and plan: Uncontrolled at home with an A1c of 9.5%. Continue sliding scale while admitted. (9) Obesity (BMI 30-39.9) Current Visit: Yes Status: Acute Assessment and plan: Chronic. Continue to encourage lifestyle modifications. (10) DVT prophylaxis Current Visit: Yes Status: Acute Assessment and plan: Heparin subcutaneous daily. - Subjective Interval history: Patient seen and examined. On examination, patient sleep supine in bed. She awakened easily to voice and denied pain or shortness of breath. She stated she was tired and would like to rest. - Constitutional Vitals: Temp Pulse Resp BP Pulse Ox 97.8 F 79 16 95/52 94 11/10/16 11:43 11/10/16 11:43 11/10/16 11:43 11/10/16 11:43 11/10/16 11:43 General appearance: Present: A&O X 3, pleasant, no acute distress, obese, answers questions appropriately - Head Head exam: Present: atraumatic, normocephalic - Eye Eye exam: Present: PERRL, conjuntiva pink, sclera anicteric Pupils: Present: PERRL - Neck Neck exam general surgery: Present: supple, trachea midline. Absent: lymphadenopathy - Respiratory Respiratory exam: Present: CTAB. Absent: accessory muscle use, rales, respiratory distress, rhonchi, wheezes - Cardiovascular Cardiovascular exam: Present: RRR, +S1, +S2. Absent: diastolic murmur, gallop, rubs, systolic murmur - GI/Abdominal GI/Abdominal exam: Present: normal bowel sounds, soft, no peritoneal signs. Absent: distended, tenderness - Extremities Exam Extremities exam: Present: warm, radial pulses palpable and symmetrical. Absent : calf tenderness, cyanotic, pedal edema - Neurological Exam Neurological exam: Present: alert, CN II-XII intact, oriented X3, no focal deficits, strengths equal and symetr throughout. Absent: pronater drift, facial droop, speech deficit - Skin Skin exam: Present: dry, intact, pallor, warm Internal Medicine: Result - Labs CBC & Chem 7: 11/10/16 03:38 11/10/16 03:38 Labs: Short CBC 11/10/16 Range/Units 03:38 WBC 7.5 (4.3-11.1) K/mcL Hgb 7.6 L (11.5-15.4) g/dL Hct 24.0 L (35.3-44.9) % Plt Count 244 (140-400) K/mcL Neutrophils # 4.6 (1.6-8.9) K/mcL BMP 11/10/16 03:38 Sodium 139 Potassium 3.8 Chloride 109 Carbon Dioxide 19 BUN 40 H Creatinine 1.88 H Glucose 158 H Calcium 8.3 L - ABG Interpretation ABG results: PT/INR, D-dimer PT 10.5 Seconds (9.4-12.1) 11/08/16 19:50 - Impressions Impressions Retroperitoneum Ultrasound 11/10/16 11:00 IMPRESSION: No hydronephrosis noted Punctate echogenic foci in the right kidney, either tiny islands of fat or nonobstructing renal calculi. D/ / Prince Crum MD / Prince Crum MD Interpreting Provider: Prince Curm MD Consult Discharge Plan - Plan Referrals: Venessa Hobbs MD [Primary Care Provider] -
[2016-11-10] MEDS: Topiramate 25 MG TABLET PO SCH (20:46)
[2016-11-10] MEDS: Insulin DETEMIR 100 UNIT/ML X5UNITS SQ SCH (20:46)
[2016-11-10] MEDS: ALPRAZolam 1 MG TABLET PO SCH (20:46)
[2016-11-11 05:28] LABS: Basophils % 0.5 %; Eosinophils # 0.1 K/mcL (0.0-0.6); Eosinophils % 1.7 %; Hematocrit 24.5 % (35.3-44.9); Hemoglobin 7.8 g/dL (11.5-15.4); Immature Granulocytes % 0.5 % (0-4); Lymphocytes # 2.1 K/mcL (0.6-4.6); Lymphocytes % 32.9 %; Mean Corpuscular HGB Conc 31.8 g/dL (31.6-35.5); Mean Corpuscular Hemoglobin 27.7 pg (28.0-33.3); Mean Corpuscular Volume 86.9 fL (83.0-100.0); Monocytes # 0.6 K/mcL (0.0-1.3); Monocytes % 8.8 %; Neutrophils # 3.6 K/mcL (1.6-8.9); Platelet Count 244 K/mcL (140-400); Red Blood Count 2.82 M/mcL (3.82-4.97); Red Cell Distribution Width 14.6 % (11.5-14.5); Segmented Neutrophils % 55.6 %
[2016-11-11] MEDS: *HR* Heparin 5,000 UNIT/ML VIAL SQ SCH (05:36)
[2016-11-11 05:44] LABS: Calcium 8.3 mg/dL (8.6-10.8); Potassium 3.9 mEq/L (3.5-4.5)
[2016-11-11 06:18] LABS: Folate 16.3 ng/mL (7.0-31.4)
[2016-11-11 06:19] LABS: Vitamin B12 > 2000 pg/mL (213-816)
[2016-11-11 06:59] LABS: Thyroid Stimulating Hormone 1.795 mcIU/mL (0.350-4.840)
--- NOTE | 2016-11-11 08:08 | Event Note ---
Date of Encounter: 11/11/16 Time of Encounter: 08:07 Patient is not in her room. Serum creatinine is slightly better. Blood pressure remains on the low side. Going to discontinue her amlodipine. Hopefully her renal function will continue to improve. I do not believe that her anemia is related to her chronic kidney disease since her baseline renal function shows only mild renal impairment.
[2016-11-11] MEDS ORDERED: Ferumoxytol 510 MG in 0.9 % Sodium Chloride 100 ML IVPB ONE (08:56)
[2016-11-11] MEDS: Insulin LISPRO 300 UNITS/3 ML VIAL SQ SCH ×3 (09:22→17:07)
[2016-11-11] MEDS: FOLBIC PO SCH (09:25)
[2016-11-11] MEDS: Fenofibrate 54 MG TABLET PO SCH (09:33)
[2016-11-11] MEDS: Pregabalin 50 MG CAPSULE PO SCH ×2 (09:35→17:08)
--- NOTE | 2016-11-11 10:20 | Nuclear Medicine Stress Report ---
Regadenoson Nuclear 2 day Name: Sugey South Date of Study: 11/10/2016 Date: 1970 Ht: 70.0 in Medical Record#: [id number] Age: 46 Wt: 269.0 lb Gender: Female Order #: [id number] Location: [facility] Room: [facility] Supervising Provider: Kalpana Hamm CNP Reading Physician: Heriberto Potts DO, FAC, [facility] Ordering Physician: Maritza Mills CNP Primary Care Physician: Venessa Hobbs MD Stress Technologist: Keya Soto, PRODUCE RUNNER, CPFT Road Supervisor Of Engines: Alirio Alexandre Indications: Chest Pain, Coronary Artery Disease Impression: Pharmacologic stress ECG is negative for ischemia at level of heart rate achieved. Gated EF = 70%. Small sized, mild intensity, fixed apical lateral defect consistent with artifact. Perfusion imaging was negative for ischemia or infarct. History: Hypertension Diabetes Hypercholesteremia Stress Test Summary: Stress Test Type: Pharmacologic Regadenoson 0.4mg/5ml given IV Baseline Information: Initial Heart Rate: 66 Blood Pressure: 100/46 Stress Information: Test Terminated Due to (primary): As per protocol Maximum Blood Pressure: 92/58 Maximum Heart Rate: 90 Percent Maximum Heart Rate Achieved: 51 Double Product: 8280 METS Reached: 1 Symptoms: Chest pain Nuclear Summary: SPECT myocardial perfusion imaging using Tc99m Sestamibi given intravenously was performed at rest and following cardiac stress testing. The resting images were obtained following initial dose of 32.3 mCi. Following stress an additional dose of 35.2 mCi was given at peak exercise or 30 seconds post regadenoson infusion. Medication Given: Time Medication Dose Units Route Findings: Stress Note * Resting ECG demonstrated normal sinus rhythm. * No baseline arrhythmias were noted. * Pharmacologic stress ECG is negative for ischemia at level of heart rate achieved. * No arrhythmias were noted during stress. * Patient had no chest pain during stress. Hemodynamic responses * Normal hemodynamic responses to pharmacologic stress. Study Quality * Study quality is average. Gated EF % * Gated EF = 70%. Left Ventricle * The left ventricle is dilated. * LVEDV = 150 mL. Apical Perfusion Rest * The apical lateral segment shows a mild reduction in perfusion. Apical Perfusion Stress * The apical lateral segment shows a mild reduction in perfusion. TID * No evidence of transient ischemic dilatation. TID ratio * TID ratio = 1.14. Lung Uptake * There is no evidence of increase lung uptake. Updated by Heriberto Potts DO, JUSTINO, CLEMENTE, RUDDY on 11/11/2016 10:14:55 AM electronically signed on 11/11/2016 10:15:39 AM with status of Final
--- NOTE | 2016-11-11 12:23 | Electrocardiograph Report ---
[address] [address] Test Date: 2016-11-08 Pat Name: Sugey South Department: 105 Room: 3B44 Gender: F Precision Dancer: : 1970 Requested By: Oni Shetty Order Number: [id number] Reading MD: Doretha Mena Measurements Intervals [place] Rate: 93 P: 57 VA: 160 QRS: -7 QRSD: 100 T: 29 QT: 343 QTc: 394 Interpretive Statements SINUS RHYTHM WITH SINUS ARRHYTHMIA LOW QRS VOLTAGE IN PRECORDIAL LEADS INCOMPLETE RIGHT BUNDLE BRANCH BLOCK Electronically Signed On 11-11-2016 12:21:41 EDT by Doretha Mena
[2016-11-11 14:55] VITALS: BP 114/57
--- NOTE | 2016-11-11 17:59 | Discharge Summary ---
Date of Encounter: 11/11/16 Time of Encounter: 17:00 - Discharge Diagnosis (1) Dyspnea Priority: Primary Status: Resolved (2) Chest pain Priority: Primary Status: Resolved Qualifiers: Chest pain type: unspecified Qualified Code(s): R07.9 - Chest pain, unspecified (3) Chest tightness Priority: Primary Status: Resolved (4) Leg swelling Priority: Primary Status: Resolved (5) Chronic anemia Priority: Secondary Status: Chronic Comments: Patient has been anemic since 2014 however since the beginning of this month, patient's hemoglobin has been lower than usual and was trending down but remained stable on the final 3 days of her 4 day admission. Current hemoglobin 7.8. Unclear causation. Patient denies hematochezia, melena, hemoptysis. Guaiac negative, iron low and she was given one dose of feraheme and started on PO supplementation. B12 levels high and folate normal. Will have her repeat CBC within one week of discharge and have her followup closely outpatient with [facility]. (6) ANDREW (acute kidney injury) Priority: Primary Status: Resolved Comments: returned to her baseline prior to discharge. CLose outpatient followup with her buyer assistant. (7) CKD (chronic kidney disease) stage 3, GFR 30-59 ml/min Priority: Secondary Status: Chronic (8) Diabetes Priority: Secondary Status: Chronic Comments: Uncontrolled at home with an A1c of 9.5%. Recommend continued follow-up outpatient (9) Obesity (BMI 30-39.9) Priority: Secondary Status: Chronic (10) DVT prophylaxis Priority: Primary Status: Acute Comments: Subcutaneous heparin while admitted - Discharge Medications Prescriptions: Ferrous Sulfate 324 mg PO BIDWM #60 tablet. Labetalol HCl 600 mg PO BID #120 tablet Home Medications: Alprazolam [Alprazolam Xr] 1 mg PO HS 07/25/16 [History] Citalopram Hydrobromide [Citalopram HBr] 40 mg PO DAILY 07/25/16 [History] Clopidogrel [Plavix] 75 mg PO DAILY 07/25/16 [History] Cyclobenzaprine [Flexeril] 10 mg PO HS PRN 07/25/16 [History] Fenofibrate 162 mg PO DAILY 07/25/16 [History] Insulin Glargine,Hum.rec.anlog [Toujeo Solostar] 56 - 60 unit SQ HS 07/25/16 [ History] Insulin LISPRO [Humalog] 10 - 15 unit SQ TID 07/25/16 [History] Isosorbide DInitrate [Isosorbide Dinitrate] 30 mg PO BID 07/25/16 [History] Losartan [Cozaar] 100 mg PO DAILY 07/25/16 [History] Metformin HCl [Fortamet] 1,000 mg PO BID 07/25/16 [History] Metoclopramide [Reglan] 10 mg PO ACHS 07/25/16 [History] Nitroglycerin [Nitrostat] 0.4 mg SL PRN PRN 07/25/16 [History] Pregabalin [Lyrica] 100 mg PO TID 07/25/16 [History] Simvastatin [Zocor] 40 mg PO HS 07/25/16 [History] Topiramate [Topamax] 25 mg PO HS 07/25/16 [History] Cyanocobalamin/FA/Pyridoxine [Folbic Tablet] 1 each PO DAILY 11/08/16 [History] Ergocalciferol (VITAMIN D2) [Vitamin D2] 50,000 unit PO QWEEK 11/08/16 [History] Ferrous Sulfate 324 mg PO BIDWM #60 tablet. 11/11/16 [Rx] Labetalol HCl 600 mg PO BID #120 tablet 11/11/16 [Rx] Allergies/Adverse Reactions: 3 Allergy/AdvReac Type Severity Reaction Status Date / Time diphenhydramine Allergy Hives Verified 11/08/16 19:43 [From Benadryl] Date of admission: 11/10/16 13:52 Primary care physician: Venessa Brice Consults: 11/09/16 00:41 Consult to Nephrology [CONS] Routine Consulting Provider: [facility] Reason for Consult: Leg swelling with decreased urine output. Call Completed: No Discharging clinician: Tiffany Domínguez Anticipated date of discharge: 11/11/16 - Patient Status Disposition: Home, Self-Care Condition: Good Functional capacity at discharge: independent ambulation Overall status at discharge: patient is back to baseline - Discharge Instructions Instructions: Chest Pain (DC), Acute Kidney Injury (DC) Follow Up With: Venessa Hobbs MD [Primary Care Provider] - 12/01/16 10:00 am Additional Instructions: Follow-up with primary care provider within one to 2 weeks, have blood work checked within 1 week - Diet and Activity Activity: increase activity as tolerated Diet: diabetic diet, low fat, low cholesterol, low salt diet Hospital course: Ms. South is a 46 year old female with past medical history of CAD, CVA, diabetes, GERD, hypertension, AL, TIA, anxiety/depression, chronic kidney disease stage III. Patient presented to the emergency department chief complaint of chest tightness that began on the day of presentation. Patient stating it was discomfort located to her left chest without radiation. She also endorsed shortness of breath, nausea, and diaphoresis. She also reported palpitations. Patient stating her chest tightness was intermittent and lasted approximately 30-45 minutes and stated that she had 5 episodes on the day of presentation. Patient stating that she tried nitroglycerin which helped. Patient also endorsed leg swelling and worsening renal function for the past 6 months. Patient also endorsed decreased urine output. Workup in the emergency department notable for acute kidney injury superimposed on chronic kidney disease stage III. Patient appeared dehydrated on examination. She was admitted to the hospitalist service for further evaluation and management. Chest x-ray negative. Patient was hypotensive initially upon admission despite receiving IV fluids for dehydration. Nephrology was brought on board and several changes were made to the patient's home medications. Labetalol dosage was decreased, hydralazine was stopped, ibuprofen was stopped, chlorthalidone was also stopped, and her amlodipine was also stopped as it was suspected to be contributing to her lower extremity edema. Patient was observed over the course of 2 nights while on these medications and her blood pressure was controlled. She was initially hypotensive and her blood pressure on day of discharge was 114/57. She was instructed to check her blood pressure daily and keep a log for her primary care provider. Her shortness of breath and lower extremity edema also resolved. Also during this admission, her anemia had worsened. She had mild anemia starting back in 2014 but since the beginning of November, her hemoglobin had been lower than usual and was initially trending down. On the final days of her admission, she remained hemodynamically stable and did not require a blood transfusion. Iron levels were low so she was given a dose of ferriheme and started on oral supplementation. B12 levels were high, folate was normal. Guaiac was negative. She was stable and there was no indication for further inpatient workup. She was instructed to have a CBC rechecked within 1 week of discharge and to follow up closely with her primary care provider. Regarding her chest pain, she denied chest pain while admitted. Troponins were negative 3. Patient had a 2 day stress test that was negative for ischemia or infarct and revealed an ejection fraction of 70%. Acute coronary syndrome was ruled out. We also performed an echocardiogram that revealed an ejection fraction of 60% with mild diastolic dysfunction. No indication of heart failure was uncovered during this admission as the patient' s pedal edema resolved after her medications were adjusted and after she was hydrated. Her dyspnea resolved and she was on room air prior to discharge. Retroperitoneal ultrasound was also performed which was unremarkable. Renal functioning had returned to her baseline prior to discharge and she was instructed to follow-up with her primary care provider as well as her buyer assistant at [facility]. She was also encouraged to seek diabetes education outpatient and she was educated on admitted given her A1c was 9.5%. She was discharged home in stable condition with close outpatient follow-up recommended. ITS Impressions Chest X-Ray 11/08/16 19:44 IMPRESSION: No acute process. D/ / Prince Sanford MD / Prince Sanford MD Interpreting Provider: Prince Sanford MD Echocardiogram Date of Study: 11/09/2016 Indications: Chest tightness Impressions: LVEF 60%. Normal LV chamber size, wall thickness and function. Mild left ventricular diastolic dysfunction. Normal right ventricular structure and function. No significant valvular dysfunction. Mild pulmonary hypertension. Retroperitoneum Ultrasound 11/10/16 11:00 IMPRESSION: No hydronephrosis noted Punctate echogenic foci in the right kidney, either tiny islands of fat or nonobstructing renal calculi. D/ / Prince Crum MD / Prince Crum MD Interpreting Provider: Prince Crum MD [facility] Nuclear 2 day Date of Study: 11/10/2016 Impression: Pharmacologic stress ECG is negative for ischemia at level of heart rate achieved. Gated EF = 70%. Small sized, mild intensity, fixed apical lateral defect consistent with artifact. Perfusion imaging was negative for ischemia or infarct. - Time Spent with Patient Total time spent providing and/or coordinating discharge services: - Constitutional Vitals: Temp Pulse Resp BP Pulse Ox 98.6 F 74 16 114/57 94 11/11/16 14:54 11/11/16 14:54 11/11/16 14:54 11/11/16 14:54 11/11/16 14:54 General appearance: Present: A&O X 3, pleasant, no acute distress, obese, answers questions appropriately - Head Head exam: Present: atraumatic, normocephalic - Eye Eye exam: Present: PERRL, conjuntiva pink, sclera anicteric Pupils: Present: PERRL - Neck Neck exam general surgery: Present: supple, trachea midline. Absent: lymphadenopathy - Respiratory Respiratory exam: Present: CTAB. Absent: accessory muscle use, rales, respiratory distress, rhonchi, wheezes - Cardiovascular Cardiovascular exam: Present: RRR, +S1, +S2. Absent: diastolic murmur, gallop, rubs, systolic murmur - GI/Abdominal GI/Abdominal exam: Present: normal bowel sounds, soft, no peritoneal signs. Absent: distended, tenderness - Extremities Exam Extremities exam: Present: warm, radial pulses palpable and symmetrical. Absent : calf tenderness, cyanotic, pedal edema - Neurological Exam Neurological exam: Present: alert, CN II-XII intact, normal gait, oriented X3, no focal deficits, strengths equal and symetr throughout. Absent: pronater drift, facial droop, speech deficit - Skin Skin exam: Present: dry, intact, pallor, warm
== END 2016-11-11 18:40 | disposition home or self-care (01) | DRG 198 ==
LOC: 3BNU 19:26 → EMEROO 19:26 → SUATTDRO 22:21 → 3BNU 23:00
PROVIDERS: ADMIT Internal Medicine; ATTEND Nurse Practitioner Family